=== PATIENT | male | born 1940 | race Two or more races ===

== ENCOUNTER 2019-08-14 11:08 | Emergency (ER) | payer SELFPAY ==
[2019-08-14] MEDS ORDERED: ACETAMINOPHEN 325 MG TABLET PO ONE (11:27)
--- NOTE | 2019-08-14 11:27 | ER Document Report ---
ED Medical Screen (RME) - General Chief Complaint: Sore Throat Stated Complaint: SORE THROAT Time Seen by Provider: 08/14/19 11:19 Mode of Arrival: Wheelchair Information source: Patient, Relative Notes: 78-year-old male who denies any type of medical history presents to the emergency department with complaints of fever cough and sore throat since Friday. Gives history of grandson with recent strep. Also gives history of nephew that just returned from the [facility] . Reports nephew was healthy no cough no fever. I have greeted and performed a rapid initial assessment of this patient. A comprehensive ED assessment and evaluation of the patient, analysis of test re sults and completion of the medical decision making process will be conducted by additional ED providers. Charge nurse notified of patient. - Related Data Allergies/Adverse Reactions: No Known Allergies Allergy (Verified 08/14/19 11:19) Physical Exam - Vital signs Vitals: Temp Pulse Resp BP Pulse Ox 101 F H 90 28 H 140/67 H 97 08/14/19 11:10 08/14/19 11:10 08/14/19 11:10 08/14/19 11:10 08/14/19 11:10 Course - Vital Signs Vital signs: Temp Pulse Resp BP Pulse Ox 99.3 F 90 28 H 140/67 H 97 08/14/19 12:46 08/14/19 11:10 08/14/19 11:10 08/14/19 11:10 08/14/19 11:10 - Laboratory Result Diagrams: 08/14/19 11:50 08/14/19 11:50 Laboratory results interpreted by me: 08/14/19 08/14/19 11:50 11:50 RDW 14.1 H Sodium 136.9 L BUN 22 H Glucose 126 H AST 60 H Total Protein 8.6 H
[2019-08-14 12:15] LABS: ABSOLUTE EOSINOPHILS # (AUTO) 0.1 10^3/uL (0.0-0.6); ABSOLUTE LYMPHOCYTES (AUTO) 0.9 10^3/uL (0.5-4.7); ABSOLUTE MONOCYTES (AUTO) 0.4 10^3/uL (0.1-1.4); ABSOLUTE NEUT (AUTO) 4.9 10^3/uL (1.7-8.2); BASOPHILS % (AUTO) 0.5 % (0-2); EOSINOPHILS % (AUTO) 1.5 % (0-6); HEMATOCRIT 44.6 % (37.9-51.0); HEMOGLOBIN 15.5 g/dL (13.5-17.0); MEAN CORPUSCULAR HEMOGLOBIN 29.3 pg (27.0-33.4); MEAN CORPUSCULAR HGB CONC 34.7 g/dL (32.0-36.0); MEAN CORPUSCULAR VOLUME 85 fl (80-97); MONOCYTES % (AUTO) 6.8 % (3-13); PLATELET COUNT 197 10^3/uL (150-450); RED BLOOD COUNT 5.28 10^6/uL (4.35-5.55); RED CELL DISTRIBUTION WIDTH 14.1 % (11.5-14.0); SEGMENTED NEUTROPHILS % (AUTO) 77.2 % (42-78); TOTAL CELLS COUNTED % (AUTO) 100 %; WHITE BLOOD COUNT 6.3 10^3/uL (4.0-10.5)
[2019-08-14] MEDS ORDERED: CEFTRIAXONE INJ 1000 MG VIAL IV ONE (12:29)
--- NOTE | 2019-08-14 12:32 | RADIOLOGY REPORT (SQ) ---
EXAM DESCRIPTION: CHEST SINGLE VIEW COMPLETED DATE/TIME: 08/14/2019 12:20 pm REASON FOR STUDY: cough fever COMPARISON: None. EXAM PARAMETERS: NUMBER OF VIEWS: One view. TECHNIQUE: Single frontal radiographic view of the chest acquired. RADIATION DOSE: NA LIMITATIONS: None. FINDINGS: LUNGS AND PLEURA: Patchy left greater than right bibasilar airspace opacities and peribron chial cuffing. Right upper lung scarring. No pneumothorax or pleural effusion. MEDIASTINUM AND HILAR STRUCTURES: No masses. Contour normal. HEART AND VASCULAR STRUCTURES: Heart normal in size. Normal vasculature. BONES: No acute findings. HARDWARE: None in the chest. OTHER: No other significant finding. IMPRESSION: (Right bibasilar airspace opacities and peribronchial cuffing, findings suggestive of ac akhiok bronchiolitis. TECHNICAL DOCUMENTATION: JOB ID: [id number] 2010 [employer]- All Rights Reserved Reading location - IP/workstation name: [email or web address]
[2019-08-14 12:36] LABS: ALBUMIN 4.5 g/dL (3.5-5.0); ALKALINE PHOSPHATASE 75 U/L (38-126); ANION GAP 9 (5-19); ASPARTATE AMINO TRANSFERASE 60 U/L (17-59); BLOOD UREA NITROGEN 22 mg/dL (7-20); CALCIUM 9.2 mg/dL (8.4-10.2); CARBON DIOXIDE 28 mmol/L (22-30); CHLORIDE 100 mmol/L (98-107); GLUCOSE 126 mg/dL (75-110); POTASSIUM 4.9 mmol/L (3.6-5.0); TOTAL PROTEIN 8.6 g/dL (6.3-8.2)
[2019-08-14 12:38] LABS: A TYPE INFLUENZA AG NEGATIVE (NEGATIVE); B INFLUENZA AG NEGATIVE (NEGATIVE)
--- NOTE | 2019-08-14 12:46 | ER Document Report ---
ED Respiratory Problem - General Chief Complaint: Cough Stated Complaint: SORE THROAT Time Seen by Provider: 08/14/19 11:19 Mode of Arrival: Wheelchair Notes: CHIEF COMPLAINT: Cough and fever for 5 days HPI: 78-year-old male who is otherwise reasonably healthy except for a chronic wound on the right ankle that is being managed by his PCP for evaluation of progressively worsening cough with fever over the last 5 days. Reports mild shortness of breath especially with exertional activities. Has not had nausea or vomiting. No recent travel. No family members with recent travel that have been ill. ROS: See HPI - all other systems were reviewed and are otherwise negative Constitutional: Generalized weakness+ fever Eyes: no drainage, no blurred vision ENT: no runny nose, no sore throat Cardiovascular: no chest pain Resp: + SOB, + cough GI: no vomiting, no diarrhea, no abdominal pain : no dysuria Integumentary: no rash Allergy: no hives Musculoskeletal: no extremity pain or swelling Neurological: no numbness/tingling, no weakness MEDICATIONS: I agree with the patient medications as charted by the RN. ALLERGIES: I agree with the allergies as charted by the RN. PAST MEDICAL HISTORY/PAST SURGICAL HISTORY: Reviewed and agree as charted by RN. SOCIAL HISTORY: Reviewed and agree as charted by RN. FAMILY HISTORY: No significant familial comorbid conditions directly related to patient complaint EXAM: Reviewed vital signs as charted by RN. CONSTITUTIONAL: Alert and oriented and responds appropriately to questions. Well-appearing; well-nourished HEAD: Normocephalic; atraumatic EYES: PERRL; Conjunctivae clear, sclerae non-icteric ENT: normal nose; no rhinorrhea; moist mucous membranes; pharynx without lesions noted, no uvula edema or deviation, no tonsillar hypertrophy, phonation normal NECK: Supple without meningismus; non-tender; no cervical lymphadenopathy, no masses CARD: RRR; no murmurs, no clicks, no rubs, no gallops; symmetric distal pulses RESP: Normal chest excursion without splinting or tachypnea; breath sounds with coarse rhonchi bilateral lobes anterior and posterior, pulse oximetry 96% on room air not hypoxic ABD/GI: Normal bowel sounds; non-distended; soft, non-tender, no rebound, no guarding; no palpable organomegaly or masses. BACK: The back appears normal and is non-tender to palpation, there is no CVA tenderness EXT: Normal ROM in all joints; non-tender to palpation; no cyanosis, no effusions, no edema SKIN: Normal color for age and race; warm; dry; good turgor; chronic skin changes noted to the bilateral lower extremities and ankles. There does appear to be a chronic ulcerative type lesion without surrounding erythema on the medial aspect of the right ankle proximal to the medial malleolus NEURO: Moves all extremities equally; Motor and sensory function intact PSYCH: The patient's mood and manner are appropriate. Grooming and personal hygiene are appropriate. MDM: 78-year-old male with fever and probable pneumonia. Initial screening labs obtained via triage process. Patient does appear to have a left lower lobe infiltrate on x-ray. Will add blood cultures, lactic acid, will start antibiotics TRAVEL OUTSIDE OF THE [place] IN LAST 30 DAYS: No - Related Data Allergies/Adverse Reactions: No Known Allergies Allergy (Verified 08/14/19 11:19) Past Medical History - General Information source: Patient, Relative - Social History Smoking Status: Never Smoker Chew tobacco use (# tins/day): No Frequency of alcohol use: None Drug Abuse: None Family History: Reviewed & Not Pertinent Patient has suicidal ideation: No Patient has homicidal ideation: No Physical Exam - Vital signs Vitals: Temp Pulse Resp BP Pulse Ox 101 F H 90 28 H 140/67 H 97 08/14/19 11:10 08/14/19 11:10 08/14/19 11:10 08/14/19 11:10 08/14/19 11:10 Course - Re-evaluation Re-evalutation: 08/14/19 13:10 On further discussion with the patient nephew who was in the [facility] a month ago did have a negative Covid Test 08/14/19 13:[address] Luis Carlos Wang, Hospitalist. He reviewed the patient's x-ray, lab work, does not believe the patient needs admission at this time, recommends antibiotics and steroids. I will discuss with the patient's to see if they are comfortable with this plan. Will have nursing ambulate the patient and check pulse ox discussed with Dr. Sagastume Attending 08/14/19 13:20 08/14/19 13:30 I spoke with the at length. She is comfortable with the plan to be discharged home as she would prefer to be at home with him. She is aware that we will ambulate him and watch pulse oximetry first. I spoke with her at length and discussed strict return instructions within 24 hours if patient is not doing well. She verbalizes understanding of this and again reiterates that she would prefer to go home with possible with him 08/14/19 14:33 Patient due to saturation went down to 91 or 92% when walking, recovered to 96% at rest, patient still denies any shortness of breath. Given the patient's pneumonia and fever will obtain swab for Covid 19 to ensure that this will be negative. Again the reiterates that she would like to go home with the patient versus admission at this time. discussed with Dr. Sagastume, Attending 08/14/19 14:35 - Vital Signs Vital signs: Temp Pulse Resp BP Pulse Ox 98.3 F 90 28 H 140/67 H 97 08/14/19 14:30 08/14/19 11:10 08/14/19 11:10 08/14/19 11:10 08/14/19 11:10 - Laboratory Result Diagrams: 08/14/19 11:50 08/14/19 11:50 Laboratory results interpreted by me: 08/14/19 08/14/19 11:50 11:50 RDW 14.1 H Sodium 136.9 L BUN 22 H Glucose 126 H AST 60 H Total Protein 8.6 H Discharge - Discharge Clinical Impression: Fever in adult Pneumonia involving left lung Qualifiers: Pneumonia type: due to unspecified organism Lung location: lower lobe of lung Qualified Code(s): J18.9 - Pneumonia, unspecified organism Condition: Stable Disposition: HOME, SELF-CARE Additional Instructions: Use the albuterol inhaler 2 puffs every 4 hours for coughing or shortness of breath. Take the antibiotics as prescribed. Continue to give Motrin or Tylenol for fever. You have several cultures and tests that are still being processed if any are positive you will receive a call from the hospital. If patient has any worsening symptoms, respiratory difficulty or continues to have fever beyond 24 to 48 hours return to the emergency department for reevaluation of symptoms as discussed Prescriptions: Amoxicillin/Potassium Clav [Augmentin 875-125 Tablet] 1 tab PO Q12 #20 tablet Albuterol Sulfate [Proair HFA Inhalation Aerosol 8.5 gm MDI] 2 puff IH Q4H PRN #1 mdi PRN Reason:
[2019-08-14] MEDS ORDERED: IPRATROPIUM/ALBUTEROL 0.5-2.5 MG/3 ML AMPUL NEB ONE (13:10)
[2019-08-14] MEDS ORDERED: DEXAMETHASONE SOD PHOS INJ 10 MG/1 ML VIAL IV ONE (13:17)
[2019-08-14 15:51] VITALS: BP 130/78
== END 2019-08-14 15:51 | disposition home or self-care (01) ==
LOC: ER 11:08
DX: J18.9 Pneumonia, unspecified organism (principal); R50.9 Fever, unspecified; R05 Cough; R53.1 Weakness; R23.9 Unspecified skin changes
CPT/HCPCS: 94640; 99283; 96375; 96365; 36415; 87040; 87070; 87880; 83605; 85025; 80053; 87804; 71045; J0696; J1100; J7620

== ENCOUNTER 2019-12-06 10:21 | Inpatient (IN) | payer SELFPAY ==
[~2019-12-06 10:21] MED LIST: DEXAMETHASONE SOD PHOSPHATE INJ 4 MG/1 ML VIAL ONE
--- NOTE | 2019-12-06 10:42 | ER Document Report ---
ED Medical Screen (RME) - General Chief Complaint: Wound Infection Stated Complaint: LEFT FOOT SKIN SORES/SWELLING Time Seen by Provider: 12/06/19 10:29 Primary Care Provider: MYRTLE PETTY PA-C [Primary Care Provider] - Follow up as needed Mode of Arrival: Wheelchair Information source: Relative Notes: 79 year-old male presented to ED for increasing pain and left lower extremity. His states the pain is up to a 5 and throbbing. He has a history of progressive peripheral vascular disease. He has had this for a long time but the pain and infection is gotten worse today. She states she has been taking him to wound care for a long time but is never had this much pain before patient is alert oriented answering questions to his . 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 I have greeted and performed a rapid initial assessment of this patient. A comprehensive ED assessment and evaluation of the patient, analysis of test results and completion of medical decision making process will be conducted by an additional ED providers. TRAVEL OUTSIDE OF THE [place] IN LAST 30 DAYS: No - Related Data Allergies/Adverse Reactions: No Known Allergies Allergy (Verified 08/14/19 11:19) Physical Exam - Vital signs Vitals: Temp Pulse Resp BP Pulse Ox 98.8 F 88 20 125/63 95 12/06/19 10:12/06/19 10:12/06/19 10:12/06/19 10:12/06/19 10:29 Course - Vital Signs Vital signs: Temp Pulse Resp BP Pulse Ox 98.8 F 88 20 125/63 95 12/06/19 10:12/06/19 10:12/06/19 10:12/06/19 10:12/06/19 10:29 Doctor's Discharge - Discharge Referrals: MYRTLE PETTY PA-C [Primary Care Provider] - Follow up as needed
[2019-12-06 11:19] LABS: ABSOLUTE BASOPHILS # (AUTO) 0.1 10^3/uL (0.0-0.2); ABSOLUTE EOSINOPHILS # (AUTO) 0.5 10^3/uL (0.0-0.6); ABSOLUTE LYMPHOCYTES (AUTO) 2.2 10^3/uL (0.5-4.7); ABSOLUTE MONOCYTES (AUTO) 0.7 10^3/uL (0.1-1.4); ABSOLUTE NEUT (AUTO) 9.5 10^3/uL (1.7-8.2); BASOPHILS % (AUTO) 0.6 % (0-2); EOSINOPHILS % (AUTO) 3.6 % (0-6); HEMATOCRIT 41.5 % (37.9-51.0); HEMOGLOBIN 14.1 g/dL (13.5-17.0); LYMPHOCYTES % (AUTO) 16.7 % (13-45); MEAN CORPUSCULAR HEMOGLOBIN 28.7 pg (27.0-33.4); MEAN CORPUSCULAR HGB CONC 34.1 g/dL (32.0-36.0); MEAN CORPUSCULAR VOLUME 84 fl (80-97); MONOCYTES % (AUTO) 5.8 % (3-13); PLATELET COUNT 471 10^3/uL (150-450); RED BLOOD COUNT 4.93 10^6/uL (4.35-5.55); RED CELL DISTRIBUTION WIDTH 13.6 % (11.5-14.0); SEGMENTED NEUTROPHILS % (AUTO) 73.3 % (42-78); TOTAL CELLS COUNTED % (AUTO) 100 %; WHITE BLOOD COUNT 12.9 10^3/uL (4.0-10.5)
[2019-12-06 11:55] LABS: ALBUMIN 3.8 g/dL (3.5-5.0); ALKALINE PHOSPHATASE 224 U/L (38-126); ANION GAP 8 (5-19); ASPARTATE AMINO TRANSFERASE 69 U/L (17-59); BILIRUBIN,DIRECT 0.2 mg/dL (0.0-0.4); BILIRUBIN,TOTAL 0.9 mg/dL (0.2-1.3); BLOOD UREA NITROGEN 18 mg/dL (7-20); CALCIUM 9.2 mg/dL (8.4-10.2); CARBON DIOXIDE 28 mmol/L (22-30); CHLORIDE 99 mmol/L (98-107); GLUCOSE 118 mg/dL (75-110); POTASSIUM 5.3 mmol/L (3.6-5.0); TOTAL PROTEIN 8.4 g/dL (6.3-8.2)
[2019-12-06] MEDS ORDERED: ONDANSETRON HCL INJ/PF 4 MG/2 ML SDV IV ONE (12:16)
[2019-12-06] MEDS ORDERED: MORPHINE SULFATE 10 MG/ML INJ IV ONE (12:16)
[2019-12-06] MEDS ORDERED: NORMAL SALINE 1000 ML 1,000 ML IV ONE (12:16)
--- NOTE | 2019-12-06 12:39 | RADIOLOGY REPORT (SQ) ---
EXAM DESCRIPTION: VENOUS UNILATERAL LOWER IMAGES COMPLETED DATE/TIME: 12/06/2019 12:17 pm REASON FOR STUDY: Peripheral vascular disease increased pain COMPARISON: None. TECHNIQUE: Dynamic and static reeder scale and color images acquired of the left leg venous system. Se lected spectral images acquired with additional compression and augmentation maneuvers. The contralat eral common femoral vein and saphenofemoral junction were also imaged. Images stored on PACS. LIMITATIONS: None. FINDINGS: COMMON FEMORAL: Normal phasicity, compression and augmentation. No visualized echogenic ma terial on reeder scale. No defects on color images. FEMORAL: Normal compression and augmentation. No visualized echogenic material on reeder scale. No defe cts on color images. POPLITEAL: Normal compression, augmentation. No visualized echogenic material on reeder scale. No defec ts on color images. CALF VESSELS: Normal compression, augmentation. No visualized echogenic material on reeder scale. No de fects on color images. GSV and SSV: Normal compression, augmentation. No visualized echogenic material on reeder scale. No def ects on color images. ANY DEEP VENOUS INSUFFICIENCY: Not evaluated. ANY EVIDENCE OF POPLITEAL CYST: No. OTHER: No other significant finding. CONTRALATERAL COMMON FEMORAL VEIN AND SAPHENOFEMORAL JUNCTION: Normal phasicity, compression and augmentation. No visualized echogenic material on reeder scale. No de fects on color images. IMPRESSION: NO EVIDENCE DVT OR SVT IN THE LEFT LEG. TECHNICAL DOCUMENTATION: JOB ID: [id number] 2010 [employer]- All Rights Reserved Reading location - IP/workstation name: [email or web address]
--- NOTE | 2019-12-06 14:19 | RADIOLOGY REPORT (SQ) ---
EXAM DESCRIPTION: CT LEFT LOWER EXTREMITY WITH IMAGES COMPLETED DATE/TIME: 12/06/2019 2:02 pm REASON FOR STUDY: pain/swelling/warmth left foot COMPARISON: Recent ultrasound. TECHNIQUE: Axial scanning through the distal leg, ankle and foot. IV contrast administered. Multip lanar reconstructions with review of bone and soft tissue windows. CONTRAST TYPE AND DOSE: Please see medical record. RENAL FUNCTION: GFR > 60. LIMITATIONS: None. FINDINGS: SOFT TISSUES: Generalized soft tissue edema along the distal anterior leg extending over the ankle and foot. In the midst of this, there is somewhat loculated appearing lower density likely reflecting abscess. This extends some 9 -10 cm along the length of the extremity. Probably measure s at least 3 cm in transverse dimension. The fluid is subcutaneous and lies superficial to the flexo r tendons. Bandage material along the medial leg is presumably skin surface breakdown. There are re gional varicosities. BONES: No fracture or worrisome bone lesion or bone destruction. IMPRESSION: 1. Cellulitis with presumed subcutaneous abscess formation along the distal anterior leg with extensi on out over the ankle and foot as described. TECHNICAL DOCUMENTATION: JOB ID: [id number] 2010 [employer]- All Rights Reserved Reading location - IP/workstation name: [email or web address]
[2019-12-06] MEDS ORDERED: VANCOMYCIN HCL INJ 1000 MG VIAL IV ONE (14:48)
[2019-12-06] MEDS ORDERED: CEFEPIME 2 GM/D5W RTU 2 GM/50 ML RTUPB IV SCH (15:00)
[2019-12-06] MEDS ORDERED: MAG HYDROX/AL HYDROX/SIMETH SUSP 30 ML UDCUP PO PRN (15:38)
[2019-12-06] MEDS ORDERED: ONDANSETRON HCL INJ/PF 4 MG/2 ML SDV IV PRN (15:38)
[2019-12-06] MEDS ORDERED: TRAMADOL HCL 50 MG TABLET PO PRN (15:50)
[2019-12-06] MEDS ORDERED: ACETAMINOPHEN 325 MG TABLET PO PRN (15:50)
[2019-12-06] MEDS ORDERED: FUROSEMIDE INJ/PF 20 MG/2 ML SDV IV ONE (16:04)
--- NOTE | 2019-12-06 16:05 | PDOC H&P ---
History of Present Illness Admission Date/PCP: MYRTLE PETTY PA-C Patient complains of: Left leg swelling History of Present Illness: MARII HERNÁNDEZ is a healthy 79 year old male with a history of chronic venous insufficiency, chronic bilateral venous stasis ulcer, who presents to the hospital for evaluation of left lower extremities swelling. History was o btained from patient and . Patient notes that his swelling began about 9 days ago involving most of his foot all the way up to his christensen. Also accompanied by erythema and significant pain over the dorsum of his left foot including his ankle. He denies any fever or chills. Denies any purulence or drainage from the area. Patient's notes that patient has had significant venostasis and discoloration of his lower extremities for over 20 years now. He gets his also attended at [facility] wound clinic. Past Medical History Cardiac Medical History: Reports: Other - Chronic venous insufficiency Infectious History Note: Appendicitis Past Surgical History Past Surgical History: Reports: Appendectomy Social History Lives with: Spouse/Significant other Smoking Status: Never Smoker Frequency of Alcohol Use: None Hx Recreational Drug Use: No Hx Prescription Drug Abuse: No - Advance Directive Resuscitation Status: Full Code Family History Family History: None Parental Family History Reviewed: Yes Children Family History Reviewed: Unknown Sibling(s) Family History Reviewed.: Yes Medication/Allergy Home Medications: Albuterol Sulfate [Proair HFA Inhalation Aerosol 8.5 gm MDI] 2 puff IH Q4H PRN #1 mdi 08/14/19 Allergies/Adverse Reactions: No Known Allergies Allergy (Verified 12/06/19 11:03) Review of Systems Constitutional: ABSENT: chills, fever(s) Eyes: ABSENT: visual disturbances Nose, Mouth, and Throat: ABSENT: headache(s) Cardiovascular: ABSENT: chest pain Respiratory: ABSENT: dyspnea Gastrointestinal: ABSENT: abdominal pain, diarrhea Genitourinary: ABSENT: dysuria Neurological: ABSENT: dizziness Endocrine: ABSENT: polyuria Allergic/Immunologic: PRESENT: other - Denies rhinorrhea Physical Exam Vital Signs: Temp Pulse Resp BP Pulse Ox 98.8 F 88 20 125/63 95 12/06/19 10:30 12/06/19 10:29 12/06/19 10:29 12/06/19 10:29 12/06/19 10:29 Intake & Output 12/05/19 12/06/19 12/07/19 06:59 06:59 06:59 Weight 61.235 kg General appearance: PRESENT: no acute distress, cooperative Head exam: PRESENT: normocephalic Eye exam: PRESENT: EOMI Neck exam: ABSENT: JVD Respiratory exam: PRESENT: clear to auscultation perla, symmetrical, unlabored. ABSENT: tachypnea, wheezes Cardiovascular exam: PRESENT: RRR, +S1, +S2. ABSENT: tachycardia GI/Abdominal exam: PRESENT: soft. ABSENT: rebound, rigid, tenderness Extremities exam: PRESENT: joint swelling - Left ankle, pedal edema - Left lower extremity is swollen from mid christensen all the way down to the tip of his toes. Accompanied by erythema and significant tenderness especially on palpation of the dorsum and the malleolar region. Skin exam: PRESENT: skin tears, other - Stasis dermatitis of bilateral lower extremities. Left lower extremity significantly dark in several areas. Results Laboratory Results: 12/06/19 10:52 12/06/19 10:52 12/06/19 12/06/19 10:52 10:52 WBC 12.9 H RBC 4.93 Hgb 14.1 Hct 41.5 MCV 84 MCH 28.7 MCHC 34.1 RDW 13.6 Plt Count 471 H Seg Neutrophils % 73.3 Sodium 134.8 L Potassium 5.3 H Chloride 99 Carbon Dioxide 28 Anion Gap 8 BUN 18 Creatinine 0.97 Est GFR ( Amer) > 60 Glucose 118 H Calcium 9.2 Total Bilirubin 0.9 AST 69 H Alkaline Phosphatase 224 H Total Protein 8.4 H Albumin 3.8 Impressions: Venous Doppler Study 12/06/19 10:40 IMPRESSION: NO EVIDENCE DVT OR SVT IN THE LEFT LEG. Lower Extremity CT 12/06/19 12:14 IMPRESSION: 1. Cellulitis with presumed subcutaneous abscess formation along the distal anterior leg with extension out over the ankle and foot as described. Assessment and Plan - Diagnosis (1) Cellulitis and abscess of left leg Is this a current diagnosis for this admission?: Yes Plan: Cellulitis/abscess likely precipitated by patient's chronic venous stasis with ulceration. CT of leg is suggestive of the of abscess forming along distal leg and anterior foot region. Surgery has been consulted I will place patient on vancomycin Blood cultures have been obtained Pain control with Tylenol and IV Toradol. Tramadol for breakthrough pain. (2) Hyperkalemia Is this a current diagnosis for this admission?: Yes Plan: I suspect that this is likely due to skin/tissue breakdown from his wounds. Will monitor metabolic panel closely. I will give him a dose of Lasix since his renal function is fine. Low potassium diet. (3) Venous stasis ulcer limited to breakdown of skin with varicose veins Qualifiers: Venous stasis ulcer site: unspecified site Qualified Code(s): I83.009 - Varicose veins of unspecified lower extremity with ulcer of unspecified site; L97.901 - Non-pressure chronic ulcer of unspecified part of unspecified lower leg limited to breakdown of skin Is this a current diagnosis for this admission?: Yes Plan: Patient has bilateral venous stasis ulcer. The venous stasis ulcer in his left lower extremity is significantly worse however. Apparently this is chronic and has been going on for several years now. Has history of chronic venous insufficiency for over 20 years now according to his . Gets cared for at [facility] wound clinic. Wound care. (4) Stasis dermatitis of both legs Is this a current diagnosis for this admission?: Yes Plan: Chronic and stable. (5) Transaminitis Is this a current diagnosis for this admission?: Yes Plan: Mild transaminitis noted. Bilirubin is normal. Trend CMP. Check hepatitis panel. - Time Time Spent with patient: 35 or more minutes
--- NOTE | 2019-12-06 16:12 | Operative Report ---
Operative Report DATE OF SURGERY: 12/06/19 PREOPERATIVE DIAGNOSIS: 1. Cellulitis left leg. 2. Chronic venous stasis ulc ers of the left lower extremity POSTOPERATIVE DIAGNOSIS: Same with abscess dorsal aspect lower leg, and ankle, left OPERATION: Focused ultrasound left lower leg SURGEON: FERMIN KEANE ANESTHESIA: Other - None TISSUE REMOVED OR ALTERED: None COMPLICATIONS: None ESTIMATED BLOOD LOSS: None INTRAOPERATIVE FINDINGS: See below PROCEDURE: Indication for procedure: The patient 79-year-old male, [id number], accompanied by his , with a long history of venous stasis ulceration the left lower extremity recently developed a swelling, pain, erythema to the dorsal distal aspect of the left lower leg, and ankle. Patient seen the emergency department found to have a leukocytosis, and CT scan findings suggesting abscess. On physical exam there is tenderness, and distorted tissue involving the skin and subcutaneous tissue consistent with chronic venous ulceration in varying stages of healing. In order to clarify presence of fluid, I now perform an ultrasound at bedside. Left leg was exposed. Ultrasonic gel placed on the leg, and the left lower leg was scanned with a variable frequency linear transducer. Just over the instep of the left ankle extending down to the forefoot is an area of 3 x 8 to 9 cm of tenderness, and mixed echogenicity with swirling movement consistent with fluid. This is localized to the dorsal aspect of the ankle. Impression: Acute abscess, distal dorsal aspect left leg in 79-year-old with multiple comorbidities recent pneumonia, peripheral vascular disease, chronic venous stasis ulceration Recommendations: 1. Check COVID status 2. Keep n.p.o., IV fluids, intravenous antibiotics and admit to hospital service 3. We will take patient to the operating room for drainage of infection, and allow wound to stay packed open. Was explained to the patient's . She expresses her understanding and agrees to proceed.
--- NOTE | 2019-12-06 16:54 | RADIOLOGY REPORT (SQ) ---
EXAM DESCRIPTION: CHEST SINGLE VIEW IMAGES COMPLETED DATE/TIME: 12/06/2019 4:23 pm REASON FOR STUDY: Preop COMPARISON: 08/14/2019 EXAM PARAMETERS: NUMBER OF VIEWS: One view. TECHNIQUE: Single frontal radiographic view of the chest acquired. RADIATION DOSE: NA LIMITATIONS: None. FINDINGS: LUNGS AND PLEURA: Mild chronic interstitial changes in the left base more than the right. No acute infiltrate, effusion, or mass. MEDIASTINUM AND HILAR STRUCTURES: No masses. Contour normal. HEART AND VASCULAR STRUCTURES: Heart normal in size. Normal vasculature. BONES: No acute findings. HARDWARE: None in the chest. OTHER: No other significant finding. IMPRESSION: Mild chronic lung changes with no acute cardiopulmonary findings. TECHNICAL DOCUMENTATION: JOB ID: [id number] 2010 [employer]- All Rights Reserved Reading location - IP/workstation name: [email or web address]
--- NOTE | 2019-12-06 17:20 | ER Document Report ---
Entered by RUFINO SHEPHERD SCRIBE 12/06/19 1209 Acting as scribe for:DEANNA BEYER MD ED General - General Chief Complaint: Wound Infection Stated Complaint: LEFT FOOT SKIN SORES/SWELLING Time Seen by Provider: 12/06/19 10:29 Mode of Arrival: Wheelchair Information source: Relative Notes: This 79 year old male patient presents to the emergency department today with complaints of swelling in his left foot. Patient's primary language is not Sami and is at bedside acting as a pathology laboratory aide and providing history. states there has been swelling of his left foot for x9 days and pain. 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 Patient had to visit a wound clinic for worsening conditions of his left ankle. Patient denies any chest pain, shortness of breath, headache, fever, or chills. TRAVEL OUTSIDE OF THE [place] IN LAST 30 DAYS: No - Related Data Allergies/Adverse Reactions: No Known Allergies Allergy (Verified 12/06/19 11:03) Past Medical History - General Information source: Relative - Social History Smoking Status: Unknown if Ever Smoked Lives with: Family Family History: Reviewed & Not Pertinent Patient has homicidal ideation: No Past Surgical History: Reports: Hx Appendectomy Review of Systems - Review of Systems Constitutional: See HPI. denies: Chills, Fever EENT: No symptoms reported Cardiovascular: See HPI. denies: Chest pain Respiratory: See HPI. denies: Short of breath Gastrointestinal: No symptoms reported Genitourinary: No symptoms reported Male Genitourinary: No symptoms reported Musculoskeletal: See HPI, Other - Swelling and pain L foot Skin: No symptoms reported Hematologic/Lymphatic: No symptoms reported Neurological/Psychological: See HPI. denies: Headaches -: Yes All other systems reviewed and negative Physical Exam - Vital signs Vitals: Temp Pulse Resp BP Pulse Ox 98.8 F 88 20 125/63 95 12/06/19 10:29 12/06/19 10:29 12/06/19 10:29 12/06/19 10:29 12/06/19 10:29 - General General appearance: Appears well, Alert - HEENT Head: Normocephalic, Atraumatic Eyes: Normal Pupils: PERRL - Respiratory Respiratory status: No respiratory distress Chest status: Nontender Breath sounds: Normal Chest palpation: Normal - Cardiovascular Rhythm: Regular Heart sounds: Normal auscultation Murmur: No - Abdominal Inspection: Normal Distension: No distension Bowel sounds: Normal Tenderness: Nontender - Extremities General upper extremity: Normal inspection. No: Edema Notes: Left foot is warm to touch and tender with palpation. Edema of the left foot and no active or open sores. Chronic grainy tissue and brawny texture. Diminished pulse found by venous doppler. - Neurological Neuro grossly intact: Yes Cognition: Normal Orientation: AAOx4 - Psychological Associated symptoms: Normal affect, Normal mood - Skin Skin Temperature: Warm Skin Moisture: Dry Skin Color: Normal Course - Re-evaluation Re-evalutation: 12/06/19 15:20 Patient is currently receiving IV fluids and IV antibiotics at this time. Discussed with the hospitalist admit team who recommended also consult the surgeon for their evaluation. Discussed with Dr. Mendes who states he will be down to see the patient in room 13. Patient's last meal was 6 AM today. Patient has an abscess of his left foot and leg and cellulitis of the left foot. - Vital Signs Vital signs: Temp Pulse Resp BP Pulse Ox 98.3 F 88 18 130/65 H 95 12/06/19 16:35 12/06/19 10:29 12/06/19 16:35 12/06/19 16:35 12/06/19 10:29 12/06/19 15:21 Vital signs stable - Laboratory Result Diagrams: 12/06/19 10:52 12/06/19 10:52 Laboratory results interpreted by me: 12/06/19 12/06/19 10:52 10:52 WBC 12.9 H Plt Count 471 H Absolute Neuts (auto) 9.5 H Sodium 134.8 L Potassium 5.3 H Glucose 118 H AST 69 H ALT 84 H Alkaline Phosphatase 224 H Total Protein 8.4 H - Diagnostic Test Radiology reviewed: Image reviewed, Reports reviewed Radiology results interpreted by me: 12/06/19 15:21 CT scan of left foot lower extremity shows cellulitis of the foot and an abscess the subcutaneous starting in the distal lower leg down to the ankle foot area. 12/06/19 15:22 Venous Doppler ultrasound of the left lower leg negative for DVT. Discharge - Discharge Clinical Impression: Cellulitis of left foot, Abscess of tendon sheath, left lower leg Condition: Good Disposition: ADMITTED INPATIENT Admitting Provider: Harris (Hospitalist) Unit Admitted: Medical Floor I personally performed the services described in the documentation, reviewed and edited the documentation which was dictated to the scribe in my presence, and it accurately records my words and actions.
--- NOTE | 2019-12-06 17:51 | EKG REPORT ---
SEVERITY:- ABNORMAL ECG - SINUS RHYTHM RBBB AND LAFB FIRST DEGREE AVB, BORDERLINE. : Confirmed by: Duke Brooke MD 06-Dec-2019 17:50:53
[2019-12-06] MEDS ORDERED: BUPIVACAINE HCL 0.25 % INJ/PF (2.5 MG/1 ML) 30 ML VIAL ONE (18:13)
[2019-12-06] MEDS ORDERED: LIDOCAINE 1% INJ-PF (10 MG/ML) 30 ML SDV ONE (18:13)
[2019-12-06] MEDS ORDERED: FENTANYL CITRATE INJ/PF 100 MCG/2 ML AMPUL ONE ×2 (18:21→18:25)
[2019-12-06] MEDS ORDERED: MORPHINE SULFATE 10 MG/ML INJ ONE (18:21)
[2019-12-06] MEDS ORDERED: MIDAZOLAM 2 MG/2 ML INJ ONE (18:21)
[2019-12-06] MEDS ORDERED: ONDANSETRON HCL INJ/PF 4 MG/2 ML SDV ONE (18:22)
[2019-12-06] MEDS ORDERED: PROPOFOL INJ 200 MG/20 ML VIAL IV ONE (18:22)
--- NOTE | 2019-12-06 19:21 | Operative Report ---
Operative Report DATE OF SURGERY: 12/06/19 PREOPERATIVE DIAGNOSIS: Subcutaneous abscess left foot POSTOPERATIVE DIAGNOSIS: Same OPERATION: Excisional debridement of skin, subcutaneous tissue, evacuation of pus, placement of counterincision and Evergreen loop drain SURGEON: FERMIN KEANE ANESTHESIA: LMAC TISSUE REMOVED OR ALTERED: Infected skin, subcutaneous tissue and pus COMPLICATIONS: None ESTIMATED BLOOD LOSS: Scant INTRAOPERATIVE FINDINGS: See below PROCEDURE: Patient was taken to the preop holding her to the main operating room where LMAC anesthesia was induced. The left foot was prepped and draped in sterile fashion. Surgical plan surgical timeout were conducted. The point of maximal fluctuance on the dorsal aspect of the proximal foot was incised and pus emanated immediately. It was sent for Gram stain, culture and sensitivity. An ellipse of skin and subcutaneous tissue was removed with a #15 blade approximately 2 cm wide by 4cm long in the cranio-caudad direction. Loculations were broken up with a hemostat, and the base of the wound curetted out. A counterincision was made towards the medial malleolus, and the communicating cutaneous tract was opened up with Leyla clamp. A Evergreen loop drain was placed through both incisions and tied in a knot. The wound was irrigated with saline several times. I felt that the debridement was sufficient. The principal wound was packed with half-inch iodoform packing. 4 x 4's and Kerlix applied. Patient tolerated procedure well, taken recovery in stable condition.
[2019-12-06] MEDS: KETOROLAC TROMETHAMINE INJ/PF 30 MG/1 ML SDV IV PRN (19:59)
[2019-12-06] MEDS ORDERED: VANCOMYCIN HCL INJ 1000 MG VIAL IV SCH (22:00)
[2019-12-06] MEDS ORDERED: CEFEPIME 2 GM/D5W RTU 4 GM/100 ML RTUPB IV ONE (23:20)
[2019-12-06] MEDS: HEPARIN SOD (PORCINE) 5,000 UNIT/ML 1 ML VIAL SUBCUT SCH (23:28)
[2019-12-07 05:49] LABS: ABSOLUTE MONOCYTES (AUTO) 0.2 10^3/uL (0.1-1.4); ABSOLUTE NEUT (AUTO) 10.3 10^3/uL (1.7-8.2); BASOPHILS % (AUTO) 0.2 % (0-2); HEMATOCRIT 38.8 % (37.9-51.0); HEMOGLOBIN 13.1 g/dL (13.5-17.0); MEAN CORPUSCULAR HEMOGLOBIN 28.3 pg (27.0-33.4); MEAN CORPUSCULAR HGB CONC 33.8 g/dL (32.0-36.0); MEAN CORPUSCULAR VOLUME 84 fl (80-97); MONOCYTES % (AUTO) 1.5 % (3-13); PLATELET COUNT 437 10^3/uL (150-450); RED BLOOD COUNT 4.63 10^6/uL (4.35-5.55); RED CELL DISTRIBUTION WIDTH 13.8 % (11.5-14.0); SEGMENTED NEUTROPHILS % (AUTO) 89.3 % (42-78); TOTAL CELLS COUNTED % (AUTO) 100 %; WHITE BLOOD COUNT 11.5 10^3/uL (4.0-10.5)
[2019-12-07] MEDS ORDERED: CEFEPIME 2 GM/D5W RTU 2 GM/50 ML RTUPB IV SCH (06:00)
[2019-12-07] MEDS: HEPARIN SOD (PORCINE) 5,000 UNIT/ML 1 ML VIAL SUBCUT SCH ×3 (06:05→21:25)
[2019-12-07 06:24] LABS: ALBUMIN 3.4 g/dL (3.5-5.0); ALKALINE PHOSPHATASE 173 U/L (38-126); ANION GAP 6 (5-19); ASPARTATE AMINO TRANSFERASE 45 U/L (17-59); BILIRUBIN,DIRECT 0.1 mg/dL (0.0-0.4); BILIRUBIN,TOTAL 0.6 mg/dL (0.2-1.3); BLOOD UREA NITROGEN 24 mg/dL (7-20); CALCIUM 8.4 mg/dL (8.4-10.2); CARBON DIOXIDE 26 mmol/L (22-30); CHLORIDE 101 mmol/L (98-107); GLUCOSE 170 mg/dL (75-110); POTASSIUM 5.1 mmol/L (3.6-5.0); TOTAL PROTEIN 7.4 g/dL (6.3-8.2)
--- NOTE | 2019-12-07 07:08 | EKG REPORT ---
SEVERITY:- ABNORMAL ECG - SINUS RHYTHM RBBB AND LAFB NONSPECIFIC ST-T CHANGES- INFERIOR LEADS : Confirmed by: Duke Brooke MD 07-Dec-2019 07:08:25
[2019-12-07] MEDS: KETOROLAC TROMETHAMINE INJ/PF 30 MG/1 ML SDV IV PRN (09:35)
[2019-12-07] MEDS: VANCOMYCIN HCL 1,000 MG in DEXTROSE 5%-WATER 250 ML IV SCH (09:35)
--- NOTE | 2019-12-07 09:48 | PDOC PROGRESS REPORT ---
Subjective Progress Note for:: 12/07/19 Reason For Visit: CELLULITIS,ABSCESS Patient feels better, less pain in the top of the foot. No fever overnight. Physical Exam Vital Signs: Temp Pulse Resp BP Pulse Ox 97.9 F 77 16 117/58 L 91 L 12/07/19 08:10 12/07/19 08:10 12/07/19 08:10 12/07/19 08:10 12/07/19 08:10 Intake & Output 12/06/19 12/07/19 12/08/19 06:59 06:59 06:59 Intake Total 990 Output Total 1850 Balance -860 Weight 62.9 kg General appearance: PRESENT: no acute distress Extremities exam: PRESENT: other - Dressing removed, drain removed, packing removed. Wound irrigated with saline and repacked with a small portion of gauze. Much less tenderness and swelling, and erythema almost resolved Results Laboratory Results: 12/07/19 04:36 12/07/19 04:36 12/06/19 12/06/19 12/07/19 10:52 10:52 04:36 WBC 12.9 H 11.5 H RBC 4.93 4.63 Hgb 14.1 13.1 L Hct 41.5 38.8 MCV 84 84 MCH 28.7 28.3 MCHC 34.1 33.8 RDW 13.6 13.8 Plt Count 471 H 437 Seg Neutrophils % 73.3 89.3 H Sodium 134.8 L Potassium 5.3 H Chloride 99 Carbon Dioxide 28 Anion Gap 8 BUN 18 Creatinine 0.97 Est GFR ( Amer) > 60 Glucose 118 H Calcium 9.2 Phosphorus Magnesium Total Bilirubin 0.9 AST 69 H Alkaline Phosphatase 224 H Total Protein 8.4 H Albumin 3.8 12/07/19 04:36 WBC RBC Hgb Hct MCV MCH MCHC RDW Plt Count Seg Neutrophils % Sodium 133.2 L Potassium 5.1 H Chloride 101 Carbon Dioxide 26 Anion Gap 6 BUN 24 H Creatinine 0.99 Est GFR ( Amer) > 60 Glucose 170 H Calcium 8.4 Phosphorus 4.0 Magnesium 2.5 H Total Bilirubin 0.6 AST 45 Alkaline Phosphatase 173 H Total Protein 7.4 Albumin 3.4 L Impressions: Venous Doppler Study 12/06/19 10:40 IMPRESSION: NO EVIDENCE DVT OR SVT IN THE LEFT LEG. Lower Extremity CT 12/06/19 12:14 IMPRESSION: 1. Cellulitis with presumed subcutaneous abscess formation along the distal anterior leg with extension out over the ankle and foot as described. Chest X-Ray 12/06/19 15:23 IMPRESSION: Mild chronic lung changes with no acute cardiopulmonary findings. Assessment & Plan - Diagnosis (1) Abscess of tendon sheath, left lower leg Is this a current diagnosis for this admission?: Yes Plan: Impression: Clinically improved left lower extremity status post debridement, packing Plan: 1. Teach dressing changes, wet-to-dry, change daily 2. Active range of motion of foot and ankle while ambulating without restrictions; keep leg elevated when at bed rest 3. Can discharge home in the next 12 to 24 hours, changing to appropriate p.o. antibiotics 4. Patient to follow-up [facility] in 1 week. 4. I discussed the above with Dr. Sun, hospitalist; will sign off from surgical standpoint; reconsult if clinically indicated. (2) Stasis dermatitis of both legs Is this a current diagnosis for this admission?: Yes
--- NOTE | 2019-12-07 12:25 | PDOC PROGRESS REPORT ---
Subjective Progress Note for:: 12/07/19 Subjective:: No adverse events overnight. No new complaints. Vital signs been stable. His reports that he has been eating and drinking without difficulty. No fevers. Reason For Visit: CELLULITIS,ABSCESS Physical Exam Vital Signs: Temp Pulse Resp BP Pulse Ox 97.5 F 74 16 116/59 L 92 12/07/19 11:31 12/07/19 11:31 12/07/19 11:31 12/07/19 11:31 12/07/19 11:31 Intake & Output 12/06/19 12/07/19 12/08/19 06:59 06:59 06:59 Intake Total 990 Output Total 1850 Balance -860 Weight 62.9 kg General appearance: PRESENT: no acute distress, cooperative, disheveled, thin Respiratory exam: PRESENT: clear to auscultation perla, symmetrical, unlabored. ABSENT: accessory muscle use, chest wall tenderness, crackles, prolonged expiratory phas, rhonchi, tachypnea, wheezes Cardiovascular exam: PRESENT: RRR, +S1, +S2 Pulses: PRESENT: normal carotid pulses Vascular exam: PRESENT: normal capillary refill GI/Abdominal exam: PRESENT: normal bowel sounds, soft. ABSENT: distended, guarding, rebound, tenderness Extremities exam: PRESENT: other - He has a clean gauze bandage wrapped around a mildly swollen left foot. ABSENT: clubbing Musculoskeletal exam: PRESENT: normal inspection. ABSENT: deformity Neurological exam: PRESENT: awake, oriented to person, oriented to place, oriented to situation Psychiatric exam: PRESENT: flat affect Skin exam: PRESENT: dry, warm, other - Evidence of longstanding stasis dermatitis of the bilateral lower extremities Results Laboratory Results: 12/07/19 04:36 12/07/19 04:36 12/07/19 12/07/19 04:36 04:36 WBC 11.5 H RBC 4.63 Hgb 13.1 L Hct 38.8 MCV 84 MCH 28.3 MCHC 33.8 RDW 13.8 Plt Count 437 Seg Neutrophils % 89.3 H Sodium 133.2 L Potassium 5.1 H Chloride 101 Carbon Dioxide 26 Anion Gap 6 BUN 24 H Creatinine 0.99 Est GFR ( Amer) > 60 Glucose 170 H Calcium 8.4 Phosphorus 4.0 Magnesium 2.5 H Total Bilirubin 0.6 AST 45 Alkaline Phosphatase 173 H Total Protein 7.4 Albumin 3.4 L Impressions: Venous Doppler Study 12/06/19 10:40 IMPRESSION: NO EVIDENCE DVT OR SVT IN THE LEFT LEG. Lower Extremity CT 12/06/19 12:14 IMPRESSION: 1. Cellulitis with presumed subcutaneous abscess formation along the distal anterior leg with extension out over the ankle and foot as described. Chest X-Ray 12/06/19 15:23 IMPRESSION: Mild chronic lung changes with no acute cardiopulmonary findings. Assessment and Plan - Diagnosis (1) Abscess of tendon sheath, left lower leg Is this a current diagnosis for this admission?: Yes Plan: Status post incision and debridement. On empiric antibiotics. Wound care recommendations per surgery. (2) Cellulitis and abscess of left leg Is this a current diagnosis for this admission?: Yes Plan: Currently on empiric antibiotics, awaiting results from operative cultures (3) Cellulitis of left foot Is this a current diagnosis for this admission?: Yes (4) Hyperkalemia Is this a current diagnosis for this admission?: Yes Plan: Improved after some IV fluids, nearly normal (5) Stasis dermatitis of both legs Is this a current diagnosis for this admission?: Yes Plan: Chronic and stable. (6) Transaminitis Is this a current diagnosis for this admission?: Yes Plan: This improved compared to yesterday after some fluids. Check hepatitis panel. (7) Venous stasis ulcer limited to breakdown of skin with varicose veins Qualifiers: Venous stasis ulcer site: unspecified site Qualified Code(s): I83.009 - Varicose veins of unspecified lower extremity with ulcer of unspecified site; L97.901 - Non-pressure chronic ulcer of unspecified part of unspecified lower leg limited to breakdown of skin Is this a current diagnosis for this admission?: Yes Plan: Patient has bilateral venous stasis ulcer. The venous stasis ulcer in his left lower extremity is significantly worse however. Apparently this is chronic and has been going on for several years now. Has history of chronic venous insufficiency for over 20 years now according to his . Gets cared for at [facility] wound clinic. Wound care. - Time Time Spent with patient: 25-34 minutes
[2019-12-07] MEDS: CEFEPIME HCL 2 GM in DEXTROSE 5%-WATER 50 ML IV SCH (17:50)
[2019-12-08] MEDS: CEFEPIME HCL 2 GM in DEXTROSE 5%-WATER 50 ML IV SCH (05:41)
[2019-12-08] MEDS: HEPARIN SOD (PORCINE) 5,000 UNIT/ML 1 ML VIAL SUBCUT SCH (05:41)
[2019-12-08] MEDS: KETOROLAC TROMETHAMINE INJ/PF 30 MG/1 ML SDV IV PRN (06:04)
[2019-12-08 07:38] LABS: HEPATITS B SURFACE ANTIGEN Negative (Negative)
[2019-12-08 08:09] LABS: HEPATITIS B SURFACE AB QUAL Reactive (.); HEPATITIS C VIRUS ANTIBODY 0.2 s/co ratio (0.0-0.9)
[2019-12-08 08:10] LABS: HEPATITIS B CORE AB TOT Positive (Negative)
[2019-12-08] MEDS: VANCOMYCIN HCL 1,000 MG in DEXTROSE 5%-WATER 250 ML IV SCH (09:36)
--- NOTE | 2019-12-08 11:54 | PDOC DISCHARGE SUMMARY ---
Impression - Admit/DC Date/PCP Admission Date/Primary Care Provider: 12/06/19 15:47 MYRTLE PETTY PA-C Discharge Date: 12/08/19 - Discharge Diagnosis (1) Abscess of tendon sheath, left lower leg Is this a current diagnosis for this admission?: Yes (2) Cellulitis and abscess of left leg Is this a current diagnosis for this admission?: Yes (3) Cellulitis of left foot Is this a current diagnosis for this admission?: Yes (4) Hyperkalemia Is this a current diagnosis for this admission?: Yes (5) Stasis dermatitis of both legs Is this a current diagnosis for this admission?: Yes (6) Transaminitis Is this a current diagnosis for this admission?: Yes (7) Venous stasis ulcer limited to breakdown of skin with varicose veins Is this a current diagnosis for this admission?: Yes - Additional Information Resuscitation Status: Full Code Discharge Diet: Regular Discharge Activity: Activity As Tolerated, Balance Activity w/Rest Referrals: FERMIN KEANE MD [ACTIVE STAFF] - 12/21/19 1:15 pm (S/P 7/6 DEBRIDEMENT OF LEFT FOOT ABSCESS) Prescriptions: Ampicillin Trihydrate [Princepen 500 mg Capsule] 1 cap PO QID #40 cap Home Medications: Albuterol Sulfate [Proair HFA Inhalation Aerosol 8.5 gm MDI] 2 puff IH Q4H PRN #1 mdi 08/14/19 Ampicillin Trihydrate [Princepen 500 mg Capsule] 1 cap PO QID #40 cap 12/08/19 History of Present Illiness History of Present Illness: MARII HERNÁNDEZ is a 79 year old male with a history of chronic venous insufficiency, chronic bilateral venous stasis ulcer, who presents to the hospital for evaluation of left lower extremities swelling. History was obtained from patient and . Patient notes that his swelling began about 9 days ago involving most of his foot all the way up to his christensen. Also accompan ied by erythema and significant pain over the dorsum of his left foot including his ankle. He denies any fever or chills. Denies any purulence or drainage from the area. Patient's notes that patient has had significant venostasis and discoloration of his lower extremities for over 20 years now. He gets his also attended at [facility] wound clinic. Hospital Course Hospital Course: (1) Abscess of tendon sheath, left lower leg Is this a current diagnosis for this admission?: Yes Plan: Status post incision and debridement. On empiric antibiotics. Wound care recommendations per surgery. 12/08/2019 Group A strep. Will prescribe outpatient ampicillin for additional 10 days. Follow-up with surgery after discharge. (2) Cellulitis and abscess of left leg Is this a current diagnosis for this admission?: Yes Plan: Currently on empiric antibiotics, awaiting results from operative cultures (3) Cellulitis of left foot Is this a current diagnosis for this admission?: Yes (4) Hyperkalemia Is this a current diagnosis for this admission?: Yes Plan: Improved after some IV fluids, nearly normal (5) Stasis dermatitis of both legs Is this a current diagnosis for this admission?: Yes Plan: Chronic and stable. (6) Transaminitis Is this a current diagnosis for this admission?: Yes Plan: This improved compared to yesterday after some fluids. Check hepatitis panel. (7) Venous stasis ulcer limited to breakdown of skin with varicose veins Qualifiers: Venous stasis ulcer site: unspecified site Qualified Code(s): I83.009 - Varicose veins of unspecified lower extremity with ulcer of unspecified site; L97.901 - Non-pressure chronic ulcer of unspecified part of unspecified lower leg limited to breakdown of skin Is this a current diagnosis for this admission?: Yes Plan: Patient has bilateral venous stasis ulcer. The venous stasis ulcer in his left lower extremity is significantly worse however. Apparently this is chronic and has been going on for several years now. Has history of chronic venous insufficiency for over 20 years now according to his . Gets cared for at [facility] wound clinic. Wound care. Physical Exam Vital Signs: Temp Pulse Resp BP Pulse Ox 97.4 F 66 16 112/46 L 96 12/08/19 07:32 12/08/19 07:32 12/08/19 07:32 12/08/19 07:32 12/08/19 07:32 Intake & Output 12/07/19 12/08/19 12/09/19 06:59 06:59 06:59 Intake Total 990 1210 870 Output Total 1850 Balance -860 1210 870 Weight 62.9 kg 63 kg General appearance: PRESENT: no acute distress Respiratory exam: PRESENT: clear to auscultation perla. ABSENT: rales, rhonchi, wheezes Cardiovascular exam: PRESENT: RRR, +S1, +S2 GI/Abdominal exam: PRESENT: normal bowel sounds, soft. ABSENT: tenderness Extremities exam: PRESENT: other - Plus dressing left foot/leg Neurological exam: PRESENT: alert, awake, oriented to person, oriented to place, oriented to situation Results Laboratory Results: WBC 11.5 10^3/uL (4.0-10.5) H 12/07/19 04:36 RBC 4.63 10^6/uL (4.35-5.55) 12/07/19 04:36 Hgb 13.1 g/dL (13.5-17.0) L 12/07/19 04:36 Hct 38.8 % (37.9-51.0) 12/07/19 04:36 MCV 84 fl (80-97) 12/07/19 04:36 MCH 28.3 pg (27.0-33.4) 12/07/19 04:36 MCHC 33.8 g/dL (32.0-36.0) 12/07/19 04:36 RDW 13.8 % (11.5-14.0) 12/07/19 04:36 Plt Count 437 10^3/uL (150-450) 12/07/19 04:36 Lymph % (Auto) 9.0 % (13-45) L 12/07/19 04:36 [place] % (Auto) 1.5 % (3-13) L 12/07/19 04:36 Eos % (Auto) 0.0 % (0-6) 12/07/19 04:36 Baso % (Auto) 0.2 % (0-2) 12/07/19 04:36 Absolute Neuts (auto) 10.3 10^3/uL (1.7-8.2) H 12/07/19 04:36 Absolute Lymphs (auto) 1.0 10^3/uL (0.5-4.7) 12/07/19 04:36 Absolute Monos (auto) 0.2 10^3/uL (0.1-1.4) 12/07/19 04:36 Absolute Eos (auto) 0.0 10^3/uL (0.0-0.6) 12/07/19 04:36 Absolute Basos (auto) 0.0 10^3/uL (0.0-0.2) 12/07/19 04:36 Seg Neutrophils % 89.3 % (42-78) H 12/07/19 04:36 Sodium 133.2 mmol/L (137-145) L 12/07/19 04:36 Potassium 5.1 mmol/L (3.6-5.0) H 12/07/19 04:36 Chloride 101 mmol/L (98-107) 12/07/19 04:36 Carbon Dioxide 26 mmol/L (22-30) 12/07/19 04:36 Anion Gap 6 (5-19) 12/07/19 04:36 BUN 24 mg/dL (7-20) H 12/07/19 04:36 Creatinine 0.99 mg/dL (0.52-1.25) 12/07/19 04:36 Est GFR ( Amer) > 60 (>60) 12/07/19 04:36 Est GFR (MDRD) Non-Af > 60 (>60) 12/07/19 04:36 Glucose 170 mg/dL (75-110) H 12/07/19 04:36 Calcium 8.4 mg/dL (8.4-10.2) 12/07/19 04:36 Phosphorus 4.0 mg/dL (2.5-4.5) 12/07/19 04:36 Magnesium 2.5 mg/dL (1.6-2.3) H 12/07/19 04:36 Total Bilirubin 0.6 mg/dL (0.2-1.3) 12/07/19 04:36 Direct Bilirubin 0.1 mg/dL (0.0-0.4) 12/07/19 04:36 Neonat Total Bilirubin Not Reportable 12/07/19 04:36 Neonat Direct Bilirubin Not Reportable 12/07/19 04:36 Neonat Indirect Bili Not Reportable 12/07/19 04:36 AST 45 U/L (17-59) 12/07/19 04:36 ALT 60 U/L (<50) H 12/07/19 04:36 Alkaline Phosphatase 173 U/L (38-126) H 12/07/19 04:36 Total Protein 7.4 g/dL (6.3-8.2) 12/07/19 04:36 Albumin 3.4 g/dL (3.5-5.0) L 12/07/19 04:36 Hepatitis A IgM Ab Negative (Negative) 12/07/19 04:36 Hep Bs Antigen Negative (Negative) 12/07/19 04:36 Hep Bs Antibody Reactive (.) 12/07/19 04:36 Hep B Core Total Ab Positive (Negative) A 12/07/19 04:36 Hep B Core IgM Ab Negative (Negative) 12/07/19 04:36 Hepatitis C Antibody 0.2 s/co ratio (0.0-0.9) 12/07/19 04:36 SARS-CoV-2 (PCR) NEGATIVE (NEGATIVE) 12/06/19 15:57 Impressions: Venous Doppler Study 12/06/19 10:40 IMPRESSION: NO EVIDENCE DVT OR SVT IN THE LEFT LEG. Lower Extremity CT 12/06/19 12:14 IMPRESSION: 1. Cellulitis with presumed subcutaneous abscess formation along the distal anterior leg with extension out over the ankle and foot as described. Chest X-Ray 12/06/19 15:23 IMPRESSION: Mild chronic lung changes with no acute cardiopulmonary findings. Plan Health Concerns: Extensive group A strep infection surgically debrided. The patient also has chronic stasis ulcers that are cared for at the [place] wound care center. These open lesions certainly increased risk of infection. Group A strep is sensitive to penicillins in general. Plan of Treatment: 10 more days of oral antibiotic therapy and follow-up at surgery clinic Goals: Complete healing of the abscess/cellulitis. Ongoing care for venous stasis ulcers. Time Spent: Greater than 30 Minutes Stroke Is this a Stroke Patient?: No Acute Heart Failure - Is this a Heart Failure Patient?: No
[2019-12-08 13:09] VITALS: BP 136/69
== END 2019-12-08 13:43 | disposition home or self-care (01) | DRG 464 ==
LOC: ER 10:21 → EH 15:47 → 4N 19:42
PROVIDERS: ADMIT Internal Medicine; ATTEND Hospitalist
PROC: 0JBR0ZZ Excision of Left Foot Subcutaneous Tissue and Fascia, Open Approach (ICD-10-PCS; principal; 2019-12-06 16:00)
DX: M65.062 Abscess of tendon sheath, left lower leg (principal); L03.116 Cellulitis of left lower limb; L97.901 Non-pressure chronic ulcer of unspecified part of unspecified lower leg limited to breakdown of skin; E87.5 Hyperkalemia; I87.2 Venous insufficiency (chronic) (peripheral); R74.0 Nonspecific elevation of levels of transaminase and lactic acid dehydrogenase [LDH]; I83.025 Varicose veins of left lower extremity with ulcer other part of foot; B95.0 Streptococcus, group A, as the cause of diseases classified elsewhere; Z03.818 Encounter for observation for suspected exposure to other biological agents ruled out
CPT/HCPCS: 00400; 36415; 71045; 80053; 80074; 83735; 84100; 85025; 86704; 86706; 87040; 87070; 87075; 87077; 87205; 87635; 93005; 93010; 93971; 96361; 96365; 96375; 99140; 99285; C9803; J0692; J1100; J1644; J1885; J1940; J2250; J2270; J2405; J2704; J3010; J3370; J3490; J7030; J7060